=== PATIENT | male | born 1945 | race Caucasian/White ===

== ENCOUNTER → 2018-10-08 | Outpatient (CLI) | payer MEDICARE, MEDICAID ==
[~2018-10-08] MED LIST: ASPI-983 PO; ATOR20TA66 PO; CLOP75TA28 PO; METO-333 PO; VALS80TA PO
== END ==
LOC: CARD 09:36
PROVIDERS: ATTEND Nurse Practitioner Family
DX: I10 Essential (primary) hypertension (principal); R00.1 Bradycardia, unspecified; I25.10 Atherosclerotic heart disease of native coronary artery without angina pectoris; Z95.2 Presence of prosthetic heart valve
CPT/HCPCS: 93225; 93226

== ENCOUNTER 2020-11-20 11:41 | Emergency (ER) | payer MEDICARE, MEDICAID ==
[2020-11-20 11:41] VITALS: BP 134/86
[~2020-11-20 11:41] MED LIST changes: +ASPI-1238 PO; -ASPI-983 PO
[2020-11-20] MEDS ORDERED: TETANUS,DIPTH,PERTUSS P/F (BOOSTRIX) 0.5 ML VIAL IM ONE (12:00)
--- NOTE | 2020-11-20 12:03 | ED Fall/Injury ---
General Chief Complaint: Trauma-Non Activation Stated Complaint: FALL Source: patient, EMS, old records History of Present Illness Date Seen by Provider: Nov 20, 2020 Time Seen by Provider: 11:44 Initial Comments 75-year-old male presenting by EMS after having a fall at home. He had tripped in the driveway and fell. He did not lose consciousness. He has superficial abrasion to his forehead and face. He has injury to his right thumbnail with bleeding. He has abrasions to his knees left worse than right. He has been able to stand and walk. He denies any loss of consciousness. He denies any chest or belly pain and has no difficulty breathing. Occurred: just prior to arrival Severity: mild Injuries/Pain Location: face, upper extremity (right thumbnail), lower extrem ity (bilateral knee abrasion left more than right) Context: tripped Loss of Consciousness: no loss of consciousness Associated Symptoms (Fall): No Abdominal Pain, No Chest Pain, No Confusion, No Dizziness, No Headache, No Lightheadedness, No Muscle Spasms, No Nausea/Vomiting, No Neck Pain, No Ringing in Ears, No Seizures, No Shortness of Air, No Slurred Speech, No Trouble Walking, No Vision Changes Allergies and Home Medications Allergies Coded Allergies: No Known Drug Allergies (Unverified , 07/23/15) Home Medications Aspirin 81 Mg Tablet.dr, 81 MG PO DAILY Prescribed by: MARIO MCCLURE on 08/01/15925 Atorvastatin Calcium 20 Mg Tablet, 40 MG PO HS Prescribed by: MARIO MCCLURE on 08/01/15925 Clopidogrel Bisulfate 75 Mg Tablet, 75 MG PO DAILY Prescribed by: MARIO MCCLURE on 08/01/15925 Metoprolol Tartrate 25 Mg Tablet, 25 MG PO DAILY Prescribed by: MARIO MCCLURE on 08/01/15925 Valsartan 80 Mg Tablet, 160 MG PO DAILY Prescribed by: MARIO MCCLURE on 08/01/15925 Patient Home Medication List Home Medication List Reviewed: Yes Review of Systems Review of Systems Constitutional: No chills, No fever Eyes: No Symptoms Reported Ears, Nose, Mouth, Throat: see HPI Respiratory: no symptoms reported Cardiovascular: no symptoms reported Gastrointestinal: no symptoms reported Genitourinary: no symptoms reported Musculoskeletal: see HPI Skin: see HPI Psychiatric/Neurological: See HPI Past Xlzeycn-Hksmqe-Ohngdz Hx Past Med/Social Hx: Reviewed Nursing Past Med/Soc Hx Immunizations Up To Date Tetanus Booster (TDap): Unknown PED Vaccines UTD: No Date of Pneumonia Vaccine: Mar 22, 2015 Date of Influenza Vaccine: Mar 22, 2015 Past Medical History Currently Using CPAP: No Currently Using BIPAP: No Reproductive Disorders: No Sexually Transmitted Disease: No HIV/AIDS: No Hearing Impairment: Hard of Hearing, Bilateral Hearing Aide Family Medical History Patient reports no known family medical history. Physical Exam Vital Signs Vital Signs - First Documented 11/20/20 11:41 Temp 37.0 Pulse 72 Resp 16 B/P (MAP) 134/86 (102) Pulse Ox 98 O2 Delivery Room Air Capillary Refill : Height, Weight, BMI Height: 5'8.00" Weight: 142lbs. 0.0oz. [id number]; 22.80 BMI Method: General Appearance: WD/WN, no apparent distress HEENT: PERRL/EOMI, pharynx normal, other (hearing aids in both ears. superficial abrasion to forehead, left cheek, nose.) Neck: non-tender, full range of motion, supple, normal inspection Cardiovascular: normal peripheral pulses, regular rate, rhythm Respiratory: chest non-tender, lungs clear, normal breath sounds Gastrointestinal: normal bowel sounds, non tender, soft, no pulsatile mass Extremities: normal range of motion, no calf tenderness, normal capillary refill, other (mild tenderness to right thumbnail where he has injury and bleeding at tip of the nail. mild tenderness to knees where he has superficial abrasions left greater than right) Neurologic/Psychiatric: alert, oriented x 3 Skin: warm/dry Ezio Coma Score Best Eye Response: (4) Open Spontaneously Best Verbal Response: (5) Oriented Best Motor Response: (6) Obeys Commands [place] Total: 15 Progress/Results/Core Measures Results/Orders My Orders Orders - LUIS ALBERTO BILLS MD Dipht,Pertuss(Acell),Tet Adult (Boostrix (11/20/20 12:00) Wound Dressing-Ed (11/20/20 11:58) Medications Given in ED Current Medications Medications Dose Ordered Sig/Adrien Route Start Time Stop Time Status Last Admin Dose Admin Diphtheria/ Tetanus/Acell Pertussis 0.5 ml ONCE ONCE IM 11/20/20 12:00 11/20/20 12:01 DC 11/20/20 12:17 0.5 ML Vital Signs/I&O 11/20/20 11:41 Temp 37.0 Pulse 72 Resp 16 B/P (MAP) 134/86 (102) Pulse Ox 98 O2 Delivery Room Air Progress Progress Note : Progress Note Cleaned abrasions and applied bandage. Reassured patient did not see anything worrisome on exam. Update tetanus booster. Counseled on follow-up and return precautions. Treat symptomatically. Departure Impression Primary Impression: Contusion of face Qualified Codes: S00.83XA - Contusion of other part of head, initial encounter Additional Impressions: Contusion of nose, initial encounter Epistaxis due to trauma Fall Qualified Codes: W19.XXXA - Unspecified fall, initial encounter Facial abrasion Qualified Codes: S00.81XA - Abrasion of other part of head, initial encounter Injury of right thumbnail Qualified Codes: S69.91XA - Unspecified injury of right wrist, hand and finger(s), initial encounter Abrasion, left knee, initial encounter Disposition: HOME, SELF-CARE Condition: Stable Departure-Patient Inst. Decision time for Depature: 12:01 Referrals: WANDER ALBERT MD (PCP/Family) Primary Care Physician Patient Instructions: Preventing Falls ED, Minor Contusion ED, Abrasions ED, Wound Care ED Add. Discharge Instructions: Keep abrasions clean with soap and water. Apply antibiotic ointment 2 to 3 times a day as needed to help with scrapes and abrasions for next 5-7 days. Ice 10-15 minutes 3-4 times a day as needed to help with pain and swelling. Acetaminophen or Ibuprofen if needed for pain Check back with clinic for continued concerns/problems All discharge instructions reviewed with patient and/or family. Voiced understanding. Images Extremities-Lower 1 - Abrasion (mild abrasion left greater than right) 2 - Abrasion (mild abrasion left greater than right) Extremities-Upper 1 - Tenderness (mild tenderness and some blood under thumbnail at tip of nail. no subungual hematoma present) LUIS ALBERTO BILLS MD Nov 20, 2020 12:03
== END 2020-11-20 12:18 | disposition home or self-care (01) ==
LOC: EDUNIT# 11:41 → ER FS 11:42
DX: S00.33XA Contusion of nose, initial encounter (principal); S80.212A Abrasion, left knee, initial encounter; S69.91XA Unspecified injury of right wrist, hand and finger(s), initial encounter; R40.2410 Glasgow coma scale score 13-15, unspecified time; Z23 Encounter for immunization; Z79.82 Long term (current) use of aspirin; W01.0XXA Fall on same level from slipping, tripping and stumbling without subsequent striking against object, initial encounter
CPT/HCPCS: 90471; 90715; 99284

== ENCOUNTER 2022-02-06 06:16 | Outpatient (CLI) | payer MEDICARE, MEDICAID ==
[2022-02-08] MEDS ORDERED: FLUT16SP22 NSEACH (16:29)
[2022-02-08] MEDS ORDERED: ASPI-1238 PO (16:29)
[2022-02-08] MEDS ORDERED: METF-397 PO (16:29)
[2022-02-08] MEDS ORDERED: ATOR40TA70 PO (16:29)
[2022-02-08] MEDS ORDERED: SPIR25TA5 PO (16:29)
[2022-02-08] MEDS ORDERED: FAMO40TA6 PO (16:29)
[2022-02-08] MEDS ORDERED: POLY238P10 PO (16:29)
[2022-02-08] MEDS ORDERED: MIRT-68 PO (16:29)
[2022-02-08] MEDS ORDERED: DOCU100C37 PO (16:29)
[2022-02-08] MEDS ORDERED: METO-333 PO (16:29)
[2022-02-08] MEDS ORDERED: LORA10TA7 PO (16:29)
== END 2022-02-08 16:32 | disposition home or self-care (01) ==
LOC: PREOP 06:16
PROVIDERS: ATTEND Surgery
DX: Z01.818 Encounter for other preprocedural examination (principal)

== ENCOUNTER 2022-02-19 10:48 | Day surgery (SDC) | payer MEDICARE, MEDICAID ==
[~2022-02-19 10:48] MED LIST changes: +ATOR40TA70 PO; +DOCU100C37 PO; +FAMO40TA6 PO; +FLUT16SP22 NSEACH; +LORA10TA7 PO; +METF-397 PO; +MIRT-68 PO; +POLY238P10 PO; +SPIR25TA5 PO
[2022-02-19] MEDS ORDERED: LACTATED RINGERS 1,000 ML IV STA (10:49)
[2022-02-19 11:00] VITALS: BP 143/89
[2022-02-19] MEDS ORDERED: PROPOFOL INJECTION 50 ML IV ONE (13:23)
--- NOTE | 2022-02-19 13:52 | Discharge Inst-Simple/Standard ---
Discharge Inst-Standard Patient Instructions/Follow Up Plan of Care/Instructions/FU: 2 weeks Romeo Activity as Tolerated: Yes Discharge Diet: Regular Diet MELISSA HOYT DO Feb 19, 2022 13:52
[2022-02-19 13:56] VITALS: BP 92/53
[2022-02-19 14:01] VITALS: BP 104/59
--- NOTE | 2022-02-19 14:02 | Anesthesia-General Post-Op ---
MAC Patient Condition Mental Status/LOC: Same as Preop Cardiovascular: Satisfactory Nausea/Vomiting: Absent Respiratory: Satisfactory Pain: Controlled Complications: Absent Post Op Complications Complications None Follow Up Care/Instructions Patient Instructions None needed. Anesthesiology Discharge Order Discharge Order Patient is doing well, no complaints, stable vital signs, no apparent adverse anesthesia problems. No complications reported per nursing. GASTON PIERSON CRNA Feb 19, 2022 14:01
[2022-02-19 14:06] VITALS: BP 101/63
[2022-02-19 14:15] VITALS: BP 101/63
[2022-02-19 15:01] VITALS: BP_SYST 101; BP_SYST 96; BP_DIAS 61; BP_DIAS 63
--- NOTE | 2022-02-19 22:01 | OPERATIVE REPORT ---
DATE OF SERVICE: 02/19/2022 PREOPERATIVE DIAGNOSIS: Screening colonoscopy. POSTOPERATIVE DIAGNOSIS: Colon polyps x2. PROCEDURE: Colonoscopy with hot biopsy polypectomy x2. SURGEON: Melissa Walters DO ANESTHESIA: Per REAL ESTATE DIRECTOR. ESTIMATED BLOOD LOSS: None. COMPLICATIONS: None. INDICATIONS: The patient is a 76-year-old male needing screening colonoscopy. He understands risks and benefits of procedure and wishes to proceed. Consent was signed in the chart. DESCRIPTION OF PROCEDURE: The patient was taken to the endoscopy suite, placed in left lateral recumbent position. Timeout was performed. Digital rectal exam was performed. Slight narrowing of the anus, no palpable polyps, masses or ulcerations. Scope was inserted in the rectum, advanced all the way to cecum with minimal difficulty. Prep was adequate. Scope was slowly retracted back. No polyps, masses or ulcerations in the cecum. In the ascending colon, a small polyp was present, which hot biopsy polypectomy was performed. Scope was then continuously retracted back and in transverse colon where another small polyp was present, which hot biopsy polypectomy was performed. Scope was then continuously retracted back. No polyps, masses or ulcerations in the remainder of the transverse, descending and sigmoid colon. Once in the rectum, scope was retroflexed noting no other pathology. Scope was returned to its normal position, slowly withdrawn until completely removed. The patient tolerated procedure well without any complications, taken to recovery room in stable condition. RECOMMENDATIONS: The patient will follow up on biopsies in 2 weeks. Likely will just need a colonoscopy on as needed basis due to age. Job ID: [id number] DocumentID: [id number] Dictated Date: 02/19/2022 13:54:33 [employer] Date: 02/19/2022 22:00:40 Dictated By: MELISSA WALTERS DO
== END 2022-02-19 15:20 | disposition home or self-care (01) ==
LOC: ENDO 10:48
PROVIDERS: ATTEND Surgery
DX: Z12.11 Encounter for screening for malignant neoplasm of colon (principal); D12.2 Benign neoplasm of ascending colon; D12.3 Benign neoplasm of transverse colon; Z79.82 Long term (current) use of aspirin; Z95.4 Presence of other heart-valve replacement; Z79.02 Long term (current) use of antithrombotics/antiplatelets